=== PATIENT | female | born 1960 | race Caucasian/White ===

== ENCOUNTER → 2020-02-02 09:03 | Outpatient (CLI) | payer BC, SELFPAY ==
--- NOTE | ~2020-02-02 | MR_ITS ---
EXAMINATION: MR cervical spine wo con DATE: 02/02/2020 09:56 INDICATION: Neck pain. Right-sided radiculopathy. TECHNIQUE: Magnetic resonance imaging (MRI) of the cervical spine was performed without intravenous c ontrast. Sequences included sagittal T2-weighted FSE, sagittal STIR FSE, sagittal T1-weighted FSE, ax ial MERGE, and axial T2-weighted FSE. COMPARISON: None FINDINGS: Bone alignment is normal. Vertebral body heights are normal. There is mildly decreased disc height at C3-C4. The spinal cord signal intensity is normal. There is a 1.7 cm nodule in right thyro id lobe. The following disc levels are specifically discussed: C2-C3: The disc does not extend beyond the endplate margin. There is no uncovertebral joint osteoarth ritis. There is mild bilateral facet joint osteoarthritis. There is no neural foraminal stenosis. The re is no central canal stenosis. C3-C4: The disc is bulging. There is moderate bilateral uncovertebral joint osteoarthritis. There is moderate bilateral facet joint osteoarthritis. There is mild bilateral neural foraminal stenosis. The re is mild central canal stenosis. C4-C5: The disc does not extend beyond the endplate margin. There is mild bilateral uncovertebral onofre nt osteoarthritis. There is severe bilateral facet joint osteoarthritis. There is mild bilateral neur al foraminal stenosis. There is no central canal stenosis. C5-C6: The disc does not extend beyond the endplate margin. There is moderate right and mild left unc overtebral joint osteoarthritis. There is mild bilateral facet joint osteoarthritis. There is mild ri ght neural foraminal stenosis. There is no central canal stenosis. C6-C7: The disc does not extend beyond the endplate margin. There is no uncovertebral joint osteoarth ritis. There is mild left facet joint osteoarthritis. There is mild left neural foraminal stenosis. T here is no central canal stenosis. C7-T1: The disc does not extend beyond the endplate margin. There is no uncovertebral joint osteoarth ritis. There is mild bilateral facet joint osteoarthritis. There is no neural foraminal stenosis. The re is no central canal stenosis. IMPRESSION: 1. Mild cervical spondylosis. 2. Thyroid nodule. Thyroid ultrasound is recommended for risk stratification. Reviewed, dictated and finalized at location A.
== END ==
PROVIDERS: PCP Internal Medicine; Visit Provider Physician Assistant Medical
DX: M47.22 Other spondylosis with radiculopathy, cervical region (principal); E04.9 Nontoxic goiter, unspecified
CPT/HCPCS: 72141

== ENCOUNTER 2022-10-31 01:15 | Day surgery (SDC) | payer BC, SELFPAY ==
[2022-10-24 16:42] VITALS: BMI 31.1
--- NOTE | 2022-10-24 16:52 | PC.NURSE ---
Report to the Outpatient Waiting Room, entrance under the green pavilion located off [facility], at time 12:00PM on date 10-31-22. Planned Procedure Time: 2:00PM. Time changes happen often and if your time is changed the preop area will call you the afternoon before. - You and your visitor will be asked to self-screen and do not enter if you have any COVID symptoms. - Only one visitor is requested with a max of two and NO children visitors are allowed at this time. - The patient visitor may be requested to leave or wait in car when not with patient due to distancing restrictions. - A mask is optional within the hospital at this time. Patients may have clear liquids (water, carbonated beverages, clear teas, apple juice) until 3 hours prior to surgery (11:00AM) with a maximum of 20 ounces. - No food from midnight until time of surgery Take the following medications with a SIP of water the morning of surgery: N/A TAKES MEDS AT BEDTIME DO NOT STOP ANY OF YOUR OTHER PRESCRIPTION MEDICATIONS PRIOR TO SURGERY ?EXCEPT THE FOLLOWING Medications to discontinue per physician VITAMINS AND SUPPLEMENTS Date to take last dose 10-27-22 Please no make-up, nail algerian, hairspray, perfume, deodorant, or body powder the day of surgery. No jewelry (including any body piercings) or valuables the day of surgery, leave them at home. Please take a shower or bath the night before, or the morning of, surgery with an antibacterial soap. Wear comfortable, loose fitting clothing. - Jewelry must be removed prior to entering the operating room. Rings and piercings that are not removed may be cut off. - The hospital will not accept responsibility for valuables. - Please leave all valuables, including medications, at home the day of surgery. If you are going home after surgery, a licensed courier driver must drive you home. - NO public transportation without another adult if you receive anesthesia. - We recommend that an adult stay with you for 24 hours following discharge. - We also recommend that you do not drive, make important decision, drink alcoholic beverages, or take any drugs that were not prescribed by your health care provider for at least 24 hours after your discharge time. Follow any additional instructions given to you from your surgeon. If you or anyone in your household have experienced Covid symptoms in the past week, please notify your surgeon or the nurse liaison at the phone number below for possible testing. Telephone instructions given to PATIENT and asked if any additional questions and then verbalized understanding. Patient advised to call surgeon office or pre surgery nurse liaison [phone] if any additional questions.
--- NOTE | 2022-10-31 11:04 | WPDANESEPPF ---
Anes - Initial Pre Proc Eval Procedure: Operation Date: 10/31/22 14:00 Proposed Procedures p Excision of Upper Back Mass and Right Anterior Thigh Mass - Latrell Barker DO Date/Time: 10/31/22 11:04 Surgeon: Latrell Barker DO Pre Op Diagnosis: 4 cm Upper Back Mass, 4cm Right Thigh Mass Patient Data Age: 62 Gender: F Height: 1.65 m Weight: 85 kg Allergies Allergy/AdvReac Type Severity Reaction Status Date / Time No Known Allergies Allergy Verified 10/31/22 11:24 Home Medications Medication Instructions Recorded Confirmed Type ascorbic acid 7.5 mg-vit E 7.5 2 tablet PO DAILY 05/24/20 10/31/22 History unit-biotin 1,250 mcg chewable tablet (Hair,Skin,Nails with Biotin) cholecalciferol (vitamin D3) 50 50 mcg PO DAILY 05/24/20 10/31/22 History mcg (2,000 unit) capsule omega 8-riu-qsu-fish oil 300 1 cap PO DAILY 05/24/20 10/31/22 History mg-1,000 mg capsule omeprazole magnesium 20 mg 20 mg PO DAILY 05/24/20 10/31/22 History tablet,delayed release (Prilosec OTC) mecobalamin (vitamin B12) 1,000 1,000 mcg PO DAILY 04/11/21 10/31/22 History mcg chewable tablet multivit,Ca,brq-lmli-RX-guarana-caff 1 tablet PO DAILY 04/11/21 10/31/22 History 18 mg iron-400 mcg-180 mg tablet (One-A-Day Women's Active) psyllium husk 0.4 gram capsule 0.4 g PO DAILY 04/11/21 10/31/22 History (Metamucil) atorvastatin 20 mg tablet 20 mg PO QHS #90 tabs 08/28/22 10/31/22 Rx cetirizine 10 mg tablet (Zyrtec) 10 mg DAILY PRN Allergic Symptoms 10/24/22 10/31/22 History Patient hx anesthesia problems: none Family hx anesthesia problems: none Results Review: All pre-operative results and documents have been reviewed as part of the pre-operative evaluation. [facility] Past Medical History Medical History Annual physical exam Arthritis Back pain Blood disorder Cataracts, bilateral Elevated cholesterol Encounter for surgical aftercare following surgery of circulatory system History of blood clots History of blood transfusion History of ITP Lipoma Mass of right axilla Migraines Multiple lipomas Right flank mass Surgical History Surgical History H/O splenectomy 1965 and 1980 H/O: hysterectomy 1997 History of appendectomy History of delivery Hx of tonsillectomy Family History Family History Father Family history of suicide Hypertension Family history of diabetes mellitus in first degree relative Patient's father is Mother Diabetes mellitus Other Anxiety Arthritis Atrial fibrillation Back pain Cancer Cataracts, bilateral Depression Family history of malignant neoplasm H/O thyroid disease Psychiatric problem Social History Social History Smoking status: Never smoker Second hand tobacco smoke exposure: No Alcohol intake: never Alcohol use details: drinks alcohol once monthly Substance use: never Substance use type: does not use Lack of Transportation: No Lack of Food: Never True Current Housing: I Have Housing Concerned About Future Housing: No Difficulty Paying Gas/Electric Bills: No Difficulty Paying for Meds: No Currently Unemployed: No Education: High School Diploma/GED Difficulty w/ Childcare or Family Care: No Living arrangements: with family Occupation/Education: occupation Additional occupation/education comments: Harvest Manager Gender identity (if verbalized by the patient): Female Sexual Orientation (if Verbalized by the Patient): Straight or Heterosexual Spiritual care concerns: No Anes - Eval Final PreProcedure Day of Procedure 10/31/22 11:04 Patient weight: obese Heart: regular rate and rhythm Lungs: clear to auscultation and
[2022-10-31] MEDS: LACTATED RINGERS 1,000 ML 30 ML IV CONT (11:50)
[2022-10-31 11:54] VITALS: BP 140/77; PULSE 64; RESP 16; TEMP 36.5; O2SAT 100
[2022-10-31 12:27] LABS: Prothrombin Time 12.9 Seconds (11.1-14.7)
[2022-10-31 12:32] LABS: Partial Thromboplastin Time 25.8 SECONDS (22.3-36.8)
--- NOTE | 2022-10-31 12:39 | WPDHPUPDATE1 ---
History and Physical Update Update Date/Time: 10/31/22 12:39 History and Physical has been reviewed, including an updated exam of the patient. There are NO changes in the patient's condition. Risks, benefits, and alternatives have been discussed and questions answered. Patient agrees to proceed with procedure.
[2022-10-31] MEDS: ceFAZolin 2 GM/D5W 50 ML 2 GM/50 ML BAG IVPB (13:16)
[2022-10-31] MEDS: LIDO 1%/EPINEPHRINE 1:100,000 20 ML VIAL INFILTRATE (13:46)
[2022-10-31 14:06] VITALS: BP 117/43; PULSE 77; RESP 15; O2SAT 98
--- NOTE | 2022-10-31 14:12 | P.OP_ITS ---
Procedure Note - Detailed Date of Procedure 10/31/22 Pre-op Diagnosis 4 cm Upper Back Mass, 4cm Right Thigh Mass Post-op Diagnosis Same Procedure Performed Excision of 4 cm back mass and 4 cm right thigh mass Surgeon Latrell Barker, DO Anesthesia MAC and Local (1% lidocaine with epinephrine) Indications This is a 62-year-old woman who presented with a back mass and right thigh mass. She noticed the mass is several years ago and does feel that they have increased in size. Discussions were made with the patient about treatment options and decision was made to proceed with excision of cm back mass 4 cm right anterior thigh mass. Findings The 2 masses were excised. The back mass was about 4 cm and had a lipomatous consistency. The right anterior thigh mass was also about 4 cm and had a lipomatous consistency. Both masses were excised and sent to the lab for pathology. Description of Procedure Procedure as well as risks, benefits, alternatives were discussed with the patient consent was obtained and placed in chart prior to procedure. Patient was brought back to surgical suite. She was placed in left lateral decubitus position. Time-out was done the patient procedure. IV sedation was admin istered by the anesthesia department. Back and anterior right thigh were prepped draped in sterile fashion using chlorhexidine prep. 1% lidocaine with epinephrine was infiltrated locally around each of the masses. A 4 cm oblique incision was then made over the back mass using a 15 blade scalpel. Electrocautery was used for hemostasis and for dissection through the subcutaneous tissue. The mass was identified and carefully dissected free using blunt dissection and electrocautery. The mass was completely excised and sent to the lab for pathology. The wound bed was then inspected no other masses were identified. Hemostasis appeared adequate. The skin edges were then reapproximated using 3-0 nylon vertical mattress interrupted sutures. Bacitracin ointment was applied followed by 4 x 4 gauze and tape. A 4 cm oblique incision was then made over the right anterior thigh mass using a 15 blade scalpel. Electrocautery was used for hemostasis and for dissection through the subcutaneous tissue. The mass was identified and carefully dissected free using blunt dissection and electrocautery. The mass was completely excised and sent to the lab for pathology. The wound bed was then i nspected and no other masses were identified. Hemostasis appeared adequate.. Skin edges then reapproximated using 4 Monocryl running subcuticular suture. Exofin glue was then applied on top. The patient was then awakened from anesthesia and transferred to recovery. Estimated Blood Loss 5 Pathology Yes (4 cm back mass and 4 cm right anterior thigh this) Complications No immediate complications Condition Stable Disposition Same day [facility] Billing Surgery - Charge Forward: Surgery Billing
[2022-10-31 14:30] VITALS: BP 142/65; PULSE 67; RESP 16
[2022-10-31 15:00] VITALS: BP 138/65; PULSE 62; RESP 15
== END 2022-10-31 15:07 | disposition home or self-care (01) ==
PROVIDERS: PCP Physician Assistant Medical; Visit Provider Surgery
PROC: (CPT 21931; principal; 2022-10-31 14:00)
DX: D17.1 Benign lipomatous neoplasm of skin and subcutaneous tissue of trunk (principal); D17.23 Benign lipomatous neoplasm of skin and subcutaneous tissue of right leg; E78.00 Pure hypercholesterolemia, unspecified; E66.9 Obesity, unspecified; Z68.31 Body mass index [BMI] 31.0-31.9, adult
CPT/HCPCS: 21931; 27337; 36415; 85610; 85730; 88304; A9270; J0690; J2250; J2370; J2704; J3010; J7120

== ENCOUNTER 2024-12-11 02:15 | Day surgery (SDC) | payer BC, SELFPAY ==
[2024-12-05 09:50] VITALS: BMI 29.9
--- OUTSIDE RECORDS SUMMARY | 2024-12-11 02:20 | XMS_ITS | Clinical Summary ---
Author Organization [facility] Address [address] [place] [address] Phone Care Team Providers Care Plastic Cutter Name Role Phone Haroon Silva MD Unavailable [phone] Provider, None Primary Care Provider Unavailabl e Allergies No known active allergies Medications atorvastatin (LIPITOR) 20 MG Tablet TAKE 1 TABLET BY MOUTH EVERY DAY AT BEDTIME 08/28/2022 Active omeprazole (PriLOSEC) 20 MG CAPSULE DELAYED RELEASE Take 20 mg by mouth daily. Active [place]-3 1400 MG Capsule 2,400 mg. Active Cyanocobalamin (B-12) 1000 MCG Capsule Take by mouth. Active Cholecalciferol (D3 2000 PO) Active Psyllium (METAMUCIL PO) Take by mouth. Active Polyethylene Glycol 3350 (MIRALAX PO) Take by mouth. Active BIOTIN FORTE PO Take by mouth. Active traMADol (ULTRAM) 50 MG Tablet Take 50 mg by mouth every 6 hours as needed. 02/04/2024 Active carisoprodol (SOMA) 350 MG Tablet TAKE 1 TABLET BY MOUTH THREE TIMES DAILY NEEDED FOR MUSCLE PAIN 02/04/2024 Active metFORMIN (GLUCOPHAGE-XR) 500 MG TABLET SR 24 HR Take 500 mg by mouth daily. 08/07/2024 Active Active Problems Problem Noted Date Diagnosed Date Elevated blood pressure reading 10/30/2024 Encounters Date Type Department Care Team Description 10/30/2024 1:30 PM CDT Clinical Support [facility] [id number] [address] Nurse, Evelyn Amherst Elevated blood pressure reading (Primary Dx); History of ITP 10/30/2024 1:15 PM CDT Office Visit [facility] [id number] [address] [phone] Haroon Silva MD History of ITP (Primary Dx) 10/30/2024 Travel from Last 3 Months Family History Medical History Relation Name Comments Thyroid Nodule Brother Suicide Attempts Father Diabetes Mother Heart Disease Mother Pacemaker Mother Thyroid Nodule Mother Relation Name Status Comments Brother Alive Father Mother Alive Sister Alive Social History Tobacco Use Types Packs/Day Years Used Date Smoking Tobacco: Never Smokeless Tobacco: Never Tobacco Cessation:Counseling Given: Not Answered Alcohol Use Standard Drinks/Week Comments Yes 0 (1 standard drink = 0.6 oz pur e alcohol) occasional Sexually Active Control Partners Comments Yes Comments Unknown Sex and Gender Information Value Date Recorded Sex Assigned at Not on file 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 Gender Identity Not on file Sexual Orientation Not on file Last Filed Vital Signs Vital Sign Reading Time Taken Comments Blood Pressure 148/84 10/30/2024 1:12 PM CDT Pulse 68 10/30/2024 1:12 PM CDT Temperature 36 C (96.8 F) 10/30/2024 1:12 PM CDT Respiratory Rate 18 10/30/2024 1:12 PM CDT Oxygen Saturation 99% 10/30/2024 1:12 PM CDT Inhaled Oxygen Concentration - - Weight 82.9 kg (182 lb 12.8 oz) 10/30/2024 1:12 PM CDT Height 165.1 cm (5' 5 ) 10/30/2024 1:12 PM CDT Body Mass Index 30.42 10/30/2024 1:12 PM CDT Plan of Treatment Upcoming Encounters Date Type Department Care Team (Late st Contact Info) Description 04/30/2025 1:15 PM CDT Office Visit [facility] [id number] [address] [address] Haroon Silva MD [address] [place] [phone] Health Maintenance Due Date Last Done Comments TdaP Immunization 1960 Colonoscopy 2005 Cologuard 2010 Pneumococcal Immunization (50+ years) (1 of 1 - PCV) 2010 04/10/2014 Zoster Immunization (1 of 2) 2010 Colorectal Cancer Screening 05/25/2016 Immunochemical Fecal Occult Blood 05/24/2017 05/24/2016, 04/10/2012 SARS-COV-2 Immunization ( season) 2024 10/25/2020, 09/27/2020 Mammogram 10/22/2025 10/22/2024, 08/2024, 09/19/2023, Additional history exists Respiratory Syncytial Virus (RSV) Immunization (Adult) (1 - 1-dose 75+ series) 2035 Pneumococcal Immunization Combined Discontinued 04/10/2014 Cervical Cancer Screening (CCS) Discontinued Pap Smear Discontinued 04/29/2014 Hepatitis C Virus (HCV) Screening Completed 09/07/2022 Influenza Immunization Completed , 05/16/2023, 04/27/2022, Additional history exists HPV/Cotest Discontinued Hepatitis B Immunization Aged Out No longer eligible based on patient's age to complete this topic Meningococcal Immunization (ACWY) Aged Out No longer eligible based on patient's age to complete this topic Rotavirus Immunization Aged Out No lo nger eligible based on patient's age to complete this topic Procedures Procedure Name Priority Date/Time Associated Diagnosis Comments COMPLETE BLOOD COUNT (CBC) WITH DIFF Routine 10/30/2024 1:30 PM CDT History of ITP CMP (COMPREHENSIVE METABOLIC PANEL) Routine 10/30/2024 1:30 PM CDT History of ITP from Last 3 Months Results * CMP (COMPREHENSIVE METABOLIC PANEL) (10/30/2024 1:30 PM CDT) Glucose 105 70 - 105 mg/dL [facility] Blood Urea Nitrogen 17 7 - 25 mg/dL [facility] Creatinine 0.8 0.6 - 1.2 mg/dL [facility] Sodium 139 136 - 145 mEq/L [facility] Potassium 4.3 3.5 - 5.1 mEq/L [facility] Chloride 103 98 - 107 mEq/L [facility] Bicarbonate 26 21 - 31 mEq/L [facility] Total Bilirubin 0.3 0.3 - 1.0 mg/dL [facility] Alk. Phosphatase 51 34 - 104 U/L [facility] Aspartate Aminotransferase 15 13 - 39 U/L [facility] Alanine Aminotransferase 14 7 - 52 U/L [facility] Total Protein 7.0 6.4 - 8.9 g/dL [facility] Albumin 4.4 3.5 - 5.7 g/dL [facility] Calcium 9.9 8.6 - 10.3 mg/dL [facility] Anion Gap 14.3 7.0 - 15.0 mEq/L [facility] Globulin 2.6 2.0 - 3.5 g/dL [facility] EGFR 82 >60 ml/min/1. 73m2 [facility] Comment: This eGFR is calculated using 2020 CKD-EPI Creatinine equation without race modifier based on the NKF-ASN task force recommendations Equation: zASD=798*min(SCr/k,1)a*max(SCr/k,1)-1.200*0.9938Age*1.012 (if female), where SCr is serum creatinine, k is 0.7 for females and 0.9 for males, and a is -0.241 for females and -0.302 for males Blood 10/30/2024 1:30 PM CDT Narrative [facility] - 10/31/2024 9:14 AM CDT Release to patient->Immediate IS THE PATIENT REQUIRED TO BE FASTING FOR 8 HOURS?->No Haroon iSlva MD CHEMISTRY ORDERABLES Final Result [facility] [place] [address], * (ABNORMAL) COMPLETE BLOOD COUNT (CBC) WITH DIFF (10/30/2024 1:30 PM CDT) WBC 10.6(H) 4.0 - 10.0 10*3/uL [facility] HGB 13.6 11.2 - 15.7 g/dL [facility] HCT 42.5 34.1 - 44.9 % [facility] PLT 94(L) 163 - 369 10*3/uL [facility] MPV 12.2 9.4 - 12.4 fL [facility] RBC 4.34 3.93 - 5.22 10*6/uL [facility] MCV 98(H) 79 - 95 fL [facility] MCH 31.3 25.6 - 32.2 pg [facility] MCHC 32.0(L) 32.2 - 36.5 g/dL [facility] RDW 14.3 11.6 - 14.4 % [facility] Absolute Neutrophil Count 5,170 cells/uL [facility] Absolute Seg Count 5,170 1,440 - 6,600 cells/uL [facility] Absolute Lymph Count 4,115(H) 760 - 4,000 cells/uL [facility] Absolute [place] Count 1,161 160 - 1,200 cells/uL [facility] Absolute Eos Count 106 0 - 300 cells/uL [facility] Segmented Neutrophils 49 36 - 66 % [facility] Lymphocytes 39 19 - 40 % [facility] Monocytes 11 4 - 12 % [facility] Eosinophils 1 0 - 3 % [facility] WBC Estimate Normal [facility] Platelet Estimate Low [facility] RBC Morphology Abnormal [facility] Macrocytosis 2+ [facility] Blood 10/30/2024 1:30 PM CDT Narrative [facility] - 10/31/2024 8:42 AM CDT Release to patient->Immediate Haroon Silva MD HEMATOLOGY ORDERABLES Final Result [facility] [place] [address], [place] [phone] from Last 3 Months Insurance [facility] Care Teams Plastic Cutter Relationship Specialty Start Date End Date Provider, None [place] PCP - General 08/22/22 Haroon Silva MD [address] [place] [address] Consulting Physician Oncology 08/22/22
--- OUTSIDE RECORDS SUMMARY | 2024-12-11 02:20 | XMS_ITS | Encounter Summary ---
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
--- OUTSIDE RECORDS SUMMARY | 2024-12-11 02:20 | XMS_ITS | Encounter Summary ---
Author Organization [facility] Address 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
--- OUTSIDE RECORDS SUMMARY | 2024-12-11 02:20 | XMS_ITS | Clinical Summary ---
Author Organization [facility] Address [address] [place] [address] Phone Care Team Providers Care Drawing In Machine Tender Name Role Phone Ezio Sosa MD Primary Care Provider [phone] Allergies Active Allergy Reactions Criticality Noted Date Comments Cephalosporins Rash Low 03/01/2012 Penicillins Rash Low 03/01/2012 Medications ERGOCALCIFEROL, VITAMIN D2, (VITAMIN D ORAL) Act luiza OMEGA-3 FATTY ACIDS (FISH OIL ORAL) Active CYANOCOBALAMIN, VITAMIN B-12, (VITAMIN B12 ORAL) Take by mouth. Active MULTIVITAMIN/IRO N/FOLIC ACID (MULTI-JUAN ALBERTO ORAL) Take by mouth. Active OMEPRAZOLE (PRILOSEC ORAL) Take by mouth. Active IBUPROFEN (ADVIL ORAL) Take by mouth. Active estradiol (ESTRACE) 1 mg tablet Take 1 Tablet (1 mg) by mouth daily. 90 Tablet 5 05/24/2016 Active Active Problems No known active problems Immunizations Immunization Administration Dates Next Due Influenza Seasonal Unspecified Formulation IM ,04/22/2011 Pneumococcal conjugate, unspecified formulation 04/10/2014 Family History Medical History Relation Name Comments Diabetes Father Breast Cancer Maternal Cousin 2 maternal cousins with breast cancer ages: 30's Diabetes Mother Relation Name Status Comments Father Maternal Cousin Mother Social History Tobacco Use Types Packs/Day Years Used Date Smoking Tobacco: Never Alcohol Use Standard Drinks/Week Comments Yes 0 (1 standard drink = 0.6 oz pur e alcohol) occ Comments No Sex and Gender Information Value Date Recorded Sex Assigned at Not on file 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 Gender Identity Not on file Sexual Orientation Not on file 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 Not on file Not on file Not on file Not on file Not on file Not on file Not on file Last Filed Vital Signs Vital Sign Reading Time Taken Comments Blood Pressure 138/80 05/24/2016 11:05 AM CDT Pulse - - Temperature - - Respiratory Rate - - Oxygen Saturation - - Inhaled Oxygen Concentration - - Weight 85 kg (187 lb 8 oz) 05/24/2016 11:05 AM C DT Height 163.8 cm (5' 4.5 ) 05/24/2016 11:05 AM CD T Body Mass Index 31.69 05/24/2016 11:05 AM CDT Plan of Treatment Health Maintenance Due Date Last Done Comments DTAP/TDAP/TD VACCINES (1 - Tdap) 1979 FIT-DNA Q 3 years 2005 Flex Sig/CT Colonography Q 5 years 2005 ZOSTER VACCINE (1 of 2) 2010 BREAST CANCER SCREENING 05/24/2017 05/24/20 16 (Previously completed), 05/24/2016, 05/28/2015, Additional history exists FIT/FOBT Q 1 year 05/24/2017 05/24/2016, 04/10/2012 COLORECTAL SCREENING 12/21/2018 12/21/2013 (Previously completed), 04/10/2012 (Postponed) Colorectal Cancer Screening 12/21/2018 INFLUENZA VACCINE (#1) 2024 04/28/2014, 2010 RSV VACCINE (60+ or ) (1 - 1-dose 75+ series) 2035 Procedures Procedure Name Priority Date/Time Associated Diagnosis Comments POC OCCULT BLOOD 1 CARD Routine 05/24/2016 1:16 PM CDT Screening for malignant neoplasm of the rectum MAMMO SCREEN BILAT W OR WO CAD Routine 05/24/2016 9:22 AM CDT Encounter for screening mammogram for breast cancer from Last 3 Months or Most Recently Relevant to Health Maintenance Results * POC OCCULT BLOOD 1 CARD (05/24/2016 1:16 PM CDT) OCCULT BLOOD #1 Negative Negative [facility] Stool specimen (specimen) STOOL SPECIMEN / Unknown 05/24/2016 1:16 PM CDT us Latrell Wheeler MD POINT OF CARE TESTING Fin al Result [facility] * MAMMO DIGITAL SCREEN BILAT (05/24/2016 9:22 AM CDT) Anatomical Region Laterality Modality Breast Bilateral Mammography Narrative 05/24/2016 9:48 AM CDT Bilateral digital screening mammogram with computer assisted diagnosis History: Annual screening exam. Findings: A bilateral screening mammogram was performed. Comparison is made to : 05/28/2015, 04/29/2013, 04/10/2012 The breast parenchyma is heterogeneously dense which can obscure small masses. No new masses, suspicious calcifications, or areas of asymmetry or distortion are identified. CAD was utilized. Impression: Negative screening mammogram. Recommendation: Routine annual follow-up Overall Assessment: Birads Category 1: Negative Latrell Wheeler MD MAMMO ORDERABLES Final Re sult from Last 3 Months or Most Recently Relevant to Health Maintenance Insurance [employer] BLUE ACCESS/TRUE BLUE PPO Care Teams Drawing In Machine Tender Relationship Specialty Start Date End Date Ezio Sosa MD [address] [place] [phone] PCP - General Internal Medicine 04/18/13
--- OUTSIDE RECORDS SUMMARY | 2024-12-11 02:20 | XMS_ITS | Encounter Summary ---
Author Organization [employer] [facility] Address 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
--- OUTSIDE RECORDS SUMMARY | 2024-12-11 02:20 | XMS_ITS | Encounter Summary ---
Author Organization [facility] Address [address] [place] [address] Attn: Epic Prelude ADT TELMA ANDINO [phone] Care Team Providers Care Administrative Services Director Name Role Phone Ezio Sosa MD Primary Care Provider [phone] Encounter Details Date Type Department Care Team (Late st Contact Info) Description 02/22/1989 Outpatient Historical Killian Hampton MD [address] [place] [address] Social History Tobacco Use Types Packs/Day Years Used Date Smoking Tobacco: Never Assessed Comments Unknown Sex and Gender Information Value Date Recorded Sex Assigned at Not on file 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
[2024-12-11 12:56] VITALS: BP 148/63; PULSE 59; RESP 18; TEMP 36.1; O2SAT 100
--- NOTE | 2024-12-11 13:07 | WPDANESEPPF ---
Anes - Initial Pre Proc Eval Procedure: Operation Date: 12/11/24 13:30 Proposed Procedures p Screening Colonoscopy - Donald Arceo MD Date/Time: 12/11/24 13:07 Surgeon: Donald Arceo MD Pre Op Diagnosis: screening Patient Data Age: 64 Gender: F Height: 1.65 m Weight: 82.7 kg Last Vital Signs Temp 97 F L 12/11/24 12:56 Pulse 59 L 12/11/24 12:56 Resp 18 12/11/24 12:56 BP 148/63 H 12/11/24 12:56 Pulse Ox 100 12/11/24 12:56 O2 Del Method Room Air 12/11/24 12:56 Allergies Allergy/AdvReac Type Severity Reaction Status Date / Time No Known Allergies Allergy Verified 12/11/24 12:55 Home Medications ?Medication ?Instructions ?Recorded ?Confirmed ?Type ascorbic acid 7.5 mg-vit E 7.5 2 tablet PO DAILY 05/24/20 12/05/24 History unit-biotin 1,250 mcg chewable tablet (Hair,Skin,Nails with Biotin) cholecalciferol (vitamin D3) 50 50 mcg PO DAILY 05/24/20 12/05/24 History mcg (2,000 unit) capsule omega 7-krw-qfe-fish oil 300 1 cap PO DAILY 05/24/20 12/05/24 History mg-1,000 mg capsule omeprazole magnesium 20 mg 20 mg PO DAILY 05/24/20 12/05/24 History tablet,delayed release (Prilosec OTC) psyllium husk 0.4 gram capsule 0.4 g PO DAILY 04/11/21 12/05/24 History (Metamucil) cetirizine 10 mg tablet (Zyrtec) 10 mg PO DAILY PRN Allergic 10/24/22 12/05/24 History Symptoms mecobalamin (vitamin B12) 1,000 1,000 mcg PO .every other day 04/25/23 12/05/24 History mcg chewable tablet polyethylene glycol 3350 17 17 g PO DAILY 04/25/23 12/05/24 History gram/dose oral powder (Miralax) atorvastatin 20 mg tablet 20 mg PO QHS #90 tabs 09/15/24 12/05/24 Rx metformin 500 mg tablet,extended 1,000 mg (2 x 500 mg) PO BID 3 11/03/24 12/05/24 Rx release 24 hr months #360 tabs Patient hx anesthesia problems: none Family hx anesthesia problems: none Results Review: All pre-operative results and documents have been reviewed as part of the pre-operative evaluation. [facility] Past Medical History Medical History (Updated 12/10/24 @ 14:36 by Lobo Belle DO) Hyperlipidemia DVT (deep venous thrombosis) Prediabetes Thyroid nodule Multiple lipomas removed History of thrombophlebitis right thigh Chronic ITP (idiopathic thrombocytopenic purpura) History of blood transfusion Elevated cholesterol Migraines Arthritis Surgical History Surgical History (Updated 09/15/24 @ 15:48 by Michelle Walton PA-C) History of bilateral cataract extraction H/O excision of mass Excision of 4 cm back mass and 4 cm right thigh mass on 10/31/22 History of appendectomy History of delivery x2 H/O: hysterectomy 1997 Hx of tonsillectomy 1959' H/O splenectomy 1965 and 1980 Family History Family History Father Family history of suicide Hypertension Family history of diabetes mellitus in first degree relative Patient's father is Mother Diabetes mellitus Other Anxiety Arthritis Atrial fibrillation Back pain Cancer Cataracts, bilateral Depression Family history of malignant neoplasm H/O thyroid disease Psychiatric problem Social History Social History Smoking status: Never smoker Second hand tobacco smoke exposure: No Alcohol intake: never Alcohol use details: drinks alcohol once monthly Substance use: never Substance use type: does not use Lack of Transportation: No Lack of Food: Never True Current Housing: I Have Housing Concerned About Future Housing: No Difficulty Paying Gas/Electric Bills: No Difficulty Paying for Meds: No Currently Unemployed: No Education: High School Diploma/GED Difficulty w/ Childcare or Family Care: No Living arrangements: with family Occupation/Education: occupation Additional occupation/education comments: Leak Inspector Gender identity (if verbalized by the patient): Female Sexual Orientation (if Verbalized by the Patient): Straight or Heterosexual Spiritual care concerns: No Anes - Eval Final PreProcedure Day of Procedure 12/11/24 13:07 Patient weight: obese Heart: regular rate and rhythm Lungs: clear to auscultation Airway: Mallampati scale class II Neurological: alert and oriented Last oral intake: >/= 8 hours ASA classification: III Emergent: no Anesthetic plan: proceed Anesthesia type and monitoring: general GIVS and standard monitoring Results Review: All pre-operative results and documents have been reviewed as part of the pre-operative evaluation. Informed Consent: The patient's anesthetic plan and its attendant risks and benefits were discussed with the patient/family/POA. Questions were solicited and answers provided to the satisfaction of the patient/family/POA.
[2024-12-11] MEDS: LACTATED RINGERS 1,000 ML 150 ML IV CONT (13:12)
--- NOTE | 2024-12-11 14:15 | P.HP_ITS ---
History of Present Illness History of Present Illness Consent: Risks, benefits, and alternatives have been discussed and questions answered. Patient agrees to proceed with procedure. Chief complaint: screening Narrative: Herminia Ruiz is a 64 year old female with last colonoscopy 2018 Review of Systems Review of Systems: All systems reviewed & are unremarkable except as noted in HPI and below PMFSH Past Medical History Medical History (Updated 12/11/24 @ 14:15 by Donald Arceo MD) Colon cancer screening Hyperlipidemia DVT (deep venous thrombosis) Prediabetes Thyroid nodule Multiple lipomas removed History of thrombophlebitis right thigh Chronic ITP (idiopathic thrombocytopenic purpura) History of blood transfusion Elevated cholesterol Migraines Arthritis Surgical History Surgical History (Updated 09/15/24 @ 15:48 by Michelle Walton PA-C) History of bilateral cataract extraction H/O excision of mass Excision of 4 cm back mass and 4 cm right thigh mass on 10/31/22 History of appendectomy History of delivery x2 H/O: hysterectomy 1997 Hx of tonsillectomy 1959's H/O splenectomy 1965 and 1980 Family History Family History Father Family history of suicide Hypertension Family history of diabetes mellitus in first degree relative Patient's father is Mother Diabetes mellitus Other Anxiety Arthritis Atrial fibrillation Back pain Cancer Cataracts, bilateral Depression Family history of malignant neoplasm H/O thyroid disease Psychiatric problem Social History Social History Smoking status: Never smoker Second hand tobacco smoke exposure: No Alcohol intake: never Alcohol use details: drinks alcohol once monthly Substance use: never Substance use type: does not use Lack of Transportation: No Lack of Food: Never True Current Housing: I Have Housing Concerned About Future Housing: No Difficulty Paying Gas/Electric Bills: No Difficulty Paying for Meds: No Currently Unemployed: No Education: High School Diploma/GED Difficulty w/ Childcare or Family Care: No Living arrangements: with family Occupation/Education: occupation 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 Gender identity (if verbalized by the patient): Female Sexual Orientation (if Verbalized by the Patient): Straight or Heterosexual Spiritual care concerns: No Meds Home Medications and Allergies Home Medications ?Medication ?Instructions ?Recorded ?Confirmed ?Type ascorbic acid 7.5 mg-vit E 7.5 2 tablet PO DAILY 05/24/20 12/05/24 History unit-biotin 1,250 mcg chewable tablet (Hair,Skin,Nails with Biotin) cholecalciferol (vitamin D3) 50 50 mcg PO DAILY 05/24/20 12/05/24 History mcg (2,000 unit) capsule omega 3-fps-owd-fish oil 300 1 cap PO DAILY 05/24/20 12/05/24 History mg-1,000 mg capsule omeprazole magnesium 20 mg 20 mg PO DAILY 05/24/20 12/05/24 History tablet,delayed release (Prilosec OTC) psyllium husk 0.4 gram capsule 0.4 g PO DAILY 04/11/21 12/05/24 History (Metamucil) cetirizine 10 mg tablet (Zyrtec) 10 mg PO DAILY PRN Allergic 10/24/22 12/05/24 History Symptoms mecobalamin (vitamin B12) 1,000 1,000 mcg PO .every other day 04/25/23 12/05/24 History mcg chewable tablet polyethylene glycol 3350 17 17 g PO DAILY 04/25/23 12/05/24 History gram/dose oral powder (Miralax) atorvastatin 20 mg tablet 20 mg PO QHS #90 tabs 09/15/24 12/05/24 Rx metformin 500 mg tablet,extended 1,000 mg (2 x 500 mg) PO BID 3 11/03/24 12/05/24 Rx release 24 hr months #360 tabs Allergies Allergy/AdvReac Type Severity Reaction Status Date / Time No Known Allergies Allergy Verified 12/11/24 12:55 Vital Signs Vital Signs - 24 hr 12/11/24 12:56 Temperature 97 F L Pulse Rate 59 L Respiratory Rate 18 Blood Pressure 148/63 H Pulse Oximetry 100 Oxygen Delivery Room Air Exam Const: General: comfortable and no acute distress HENMT: Face/Nose/Sinus: Normal nares present Eyes: General: appearance normal, both eyes and all related structures Neck: Neck: no JVD Resp: Auscultation: clear to auscultation bilaterally Cardio: Rate: regular rate Rhythm: regular rhythm GI: Inspection: non-distended GI Palp: Yes Soft to palpation Skin: General skin exam: normal color Neuro: General: gait normal Speech: normal speech Extrem: General: normal to inspection Psych: Mental Status: mental status grossly normal Assessment and Plan Assessment and plan (1) Colon cancer screening: Code(s): Z12.11 - Encounter for screening for malignant neoplasm of colon Status: Acute Assessment and Plan: colonoscopy
[2024-12-11 14:17] LABS: Glucose Point of Care 64 mg/dl (65-105)
--- NOTE | 2024-12-11 14:21 | SUR.OPER ---
1412: BLOOD SUGAR PREOP 64. PT DENIES SYMPTOMS OTHER THAN BEING WEAK AND TIRED. ERIN MITCHELL AT BEDSIDE AND AWARE, STATES HE WILL TREAT. 1420: ERIN MITCHELL TREATING BLOOD SUGAR WITH 1/2 AMP D50.
[2024-12-11 14:32] VITALS: BP 92/40; PULSE 57; RESP 18; O2SAT 97
[2024-12-11 14:41] LABS: Glucose Point of Care 146 mg/dl (65-105)
[2024-12-11 14:42] VITALS: BP 91/42; PULSE 56; RESP 18; O2SAT 97
[2024-12-11 14:52] VITALS: BP 110/48; PULSE 57; RESP 18; O2SAT 98
== END 2024-12-11 15:01 | disposition home or self-care (01) ==
PROVIDERS: PCP Physician Assistant Medical; Visit Provider Internal Medicine Gastroenterology
PROC: 0DJD8ZZ Inspection of Lower Intestinal Tract, Via Natural or Artificial Opening Endoscopic (ICD-10-PCS; CPT 45378; principal; 2024-12-11 13:30)
DX: Z12.11 Encounter for screening for malignant neoplasm of colon (principal); K63.5 Polyp of colon; K57.30 Diverticulosis of large intestine without perforation or abscess without bleeding; K64.8 Other hemorrhoids; E11.9 Type 2 diabetes mellitus without complications; E66.9 Obesity, unspecified; Z68.30 Body mass index [BMI] 30.0-30.9, adult
CPT/HCPCS: 45380; 82948; 88305; J2003; J2704; J7120